=== PATIENT | male | born 1985 | race Two or more races ===

== ENCOUNTER 2023-04-18 12:48 | Emergency (ER) | payer OTHER ==
[~2023-04-18] VITALS: Ht 172.7 cm; Wt 68.0 kg
== END 2023-04-18 15:51 | disposition home or self-care (01) ==
LOC: ER 12:48
DX: M12.571 Traumatic arthropathy, right ankle and foot (principal); S93.491A Sprain of other ligament of right ankle, initial encounter; Z91.013 Allergy to seafood

== ENCOUNTER 2023-04-20 09:26 | Outpatient (CLI) | payer OTHER | END 2023-04-20 09:37 | disposition home or self-care (01) | LOC: RAD 09:26 | PROVIDERS: ATTEND Orthopaedic Surgery | DX: M79.671 Pain in right foot (principal) ==